=== PATIENT | female | born 1970 | race Caucasian/White ===

== ENCOUNTER → 2020-09-20 16:37 | Outpatient (CLI) | payer OTHER, SELFPAY ==
--- NOTE | 2020-09-20 16:41 | DI.MG.S_ITS ---
BILATERAL DIGITAL SCREENING MAMMOGRAM 3D/2D WITH CAD: 09/20/2020 CLINICAL: Routine screening. Comparison is made to exams dated: 08/15/2017 mammogram, 05/16/2016 mammogram - [facility], and 03/24/2015 mammogram - [facility]. The tissue of both breasts is heterogeneously dense. This may lower the sensitivity of mammography. Current study was also evaluated with a Computer Aided Detection (CAD) system. There are grouped coarse calcifications in the left breast at 12 o'clock anterior depth. These are more prominent and increased in number. There also are grouped heterogeneous calcifications in the left breast at 3 o'clock middle depth. These are more prominent on the craniocaudal view. No other significant masses, calcifications, or other findings are seen in either breast. IMPRESSION: INCOMPLETE: NEEDS ADDITIONAL IMAGING EVALUATION The grouped coarse calcifications in the left breast at 12 o'clock anterior depth are indeterminate. Additional views with mediolateral, and spot magnification are recommended. The grouped heterogeneous calcifications in the left breast at 3 o'clock middle depth are indeterminate. Additional views with mediolateral, and spot magnification are recommended. This exam was interpreted at Station ID: [id number]. NOTE: For mammograms, a report in lay terms will be sent to the patient. Approximately 15% of breast malignancies will not be visualized mammographically. In the management of a palpable breast mass, a negative mammogram must not discourage biopsy of a clinically suspicious lesion. Electronically Signed By: Nomi Liu M.D. aty/:09/20/2020 17:18:08 letter sent: Additional Imaging Needed ACR BI-RADS Category 0: Incomplete 3340F
== END ==
PROVIDERS: Referring Provider Nurse Practitioner Family; Visit Provider Nurse Practitioner Family
DX: Z12.31 Encounter for screening mammogram for malignant neoplasm of breast (principal)
CPT/HCPCS: 77063; 77067

== ENCOUNTER → 2020-09-30 09:25 | Outpatient (CLI) | payer OTHER, SELFPAY ==
--- NOTE | 2020-09-30 09:27 | DI.MG.S_ITS ---
UNILATERAL LEFT DIGITAL DIAGNOSTIC MAMMOGRAM 3D/2D WITH ADDITIONAL VIEWS: 09/30/2020 CLINICAL: Additional evaluation requested from prior study. Comparison is made to exams dated: 09/20/2020 mammogram - [facility], 08/15/2017 mammogram, and 05/16/2016 mammogram - [facility]. The tissue of left breast is heterogeneously dense. This may lower the sensitivity of mammography. There are grouped coarse calcifications in the left breast at 12 o'clock anterior depth. These are seen in additional views. These are more prominent and increased in number. There also are grouped punctate round calcifications in the left breast at 3 o'clock middle depth. These are less prominent. No other significant masses or calcifications are seen in the breast. IMPRESSION: PROBABLY BENIGN The grouped coarse calcifications in the left breast at 12 o'clock anterior depth have a differential diagnosis of a degenerating fibroadenoma and are probably benign. The grouped punctate round calcifications in the left breast at 3 o'clock middle depth are probably benign. A follow-up left mammogram in 6 months is recommended to demonstrate stability. This exam was interpreted at Station ID: [id number]. NOTE: For mammograms, a report in lay terms will be sent to the patient. Approximately 15% of breast malignancies will not be visualized mammographically. In the management of a palpable breast mass, a negative mammogram must not discourage biopsy of a clinically suspicious lesion. Electronically Signed By: Jensen hernandez/jennifer:09/30/2020 10:13:03 letter sent: Followup Recommended ACR BI-RADS Category 3: Probably benign [id number]
== END ==
PROVIDERS: PCP Nurse Practitioner Family; Referring Provider Nurse Practitioner Family; Visit Provider Nurse Practitioner Family
DX: R92.8 Other abnormal and inconclusive findings on diagnostic imaging of breast (principal); R92.1 Mammographic calcification found on diagnostic imaging of breast
CPT/HCPCS: 77065; G0279

== ENCOUNTER → 2021-06-20 13:25 | Outpatient (CLI) | payer OTHER, SELFPAY ==
--- NOTE | 2021-06-20 | DI.MG.S_ITS ---
UNILATERAL LEFT DIGITAL DIAGNOSTIC MAMMOGRAM 3D/2D: 06/20/2021 CLINICAL: Short term follow up. Comparison is made to exams dated: 09/30/2020 mammogram, 09/20/2020 mammogram - [facility], and 08/15/2017 mammogram - [facility]. The tissue of left breast is heterogeneously dense. This may lower the sensitivity of mammography. There are stable grouped coarse calcifications in the left breast at 12 o'clock anterior depth. These are seen in additional views. Additionally, there are grouped punctate round calcifications in the left breast at 3 o'clock middle depth. These are not significantly changed. There is an incidental new 1 cm low density asymmetry with an obscured and circumscribed margin in the left breast middle depth inferior region seen on the mediolateral oblique view only. No other significant masses or calcifications are seen in the breast. IMPRESSION: INCOMPLETE: NEEDS ADDITIONAL IMAGING EVALUATION The grouped calcifications in the left breast at 12 o'clock anterior depth and at 3 o'clock middle depth are stable and probably benign. A 6 month follow up left mammogram with magnifications views is recommended to document continued stability. The new 1 cm low density asymmetry in the left breast middle depth inferior region seen on the mediolateral oblique view only is indeterminate. An ultrasound is recommended. This will be performed as soon as the order is approved. Findings and recommendations were conveyed to the patient at time of exam. This exam was interpreted at Station ID: [id number]. NOTE: For mammograms, a report in lay terms will be sent to the patient. Approximately 15% of breast malignancies will not be visualized mammographically. In the management of a palpable breast mass, a negative mammogram must not discourage biopsy of a clinically suspicious lesion. Electronically Signed By: Aissatou whitley/:06/20/2021 14:26:39 Entry: - 06/21/2021 08:19:06 letter sent: Need Ultrasound ACR BI-RADS Category 0: Incomplete 3340F
== END ==
PROVIDERS: PCP Nurse Practitioner Family; Referring Provider Nurse Practitioner Family; Visit Provider Nurse Practitioner Family
DX: R92.1 Mammographic calcification found on diagnostic imaging of breast (principal); N64.89 Other specified disorders of breast
CPT/HCPCS: 77065; G0279

== ENCOUNTER → 2021-07-19 09:18 | Outpatient (CLI) | payer OTHER, SELFPAY ==
--- NOTE | 2021-07-19 | DI.US.S_ITS ---
LIMITED ULTRASOUND OF LEFT BREAST: 07/19/2021 CLINICAL: Patient returns today to evaluate a focal asymmetry in the left breast. Comparison is made to exams dated: 06/20/2021 mammogram and 09/30/2020 mammogram - [facility]. Color flow and real-time ultrasound of the left breast lower aspect were performed on the areas of interest. There is acluster of oval cysts in the left breast at 8 o'clock middle depth 4 cm from the nipple with the largest cyst measuring up to 0.6 cm x 0.5 cm x 0.6 cm. This cluster of oval cysts is hypoechoic with internal echoes and posterior acoustic enhancement. This likely correlates with mammography findings. Color flow imaging demonstrates that there is no vascularity present. There also is a benign 0.8 cm x 0.4 cm x 0.7 cm oval cyst in the left breast at 6 o'clock 4 cm from the nipple. This oval cyst is anechoic with a well-defined boundary and posterior acoustic enhancement. Color flow imaging demonstrates that there is no vascularity present. IMPRESSION: PROBABLY BENIGN The cluster of oval cysts in the left breast at 8 o'clock middle depth is probably benign. Follow-up mammogram and ultrasound in 6 months are recommended. The oval cyst in the left breast at 6 o'clock is consistent with a simple cyst and is benign. A follow-up mammogram and an ultrasound in 6 months are recommended to demonstrate stability. Future imaging is recommended as follows: 12/21/2021 follow-up left mammogram. This exam was interpreted at Station ID: [id number]. Electronically Signed By: Santosh burton/:07/19/2021 10:47:25 letter sent: Followup Recommended Ultrasound BI-RADS: 3 Probably benign
== END ==
PROVIDERS: PCP Nurse Practitioner Family; Referring Provider Nurse Practitioner Family; Visit Provider Nurse Practitioner Family
DX: R92.8 Other abnormal and inconclusive findings on diagnostic imaging of breast (principal); N60.02 Solitary cyst of left breast
CPT/HCPCS: 76642